=== PATIENT | male | born 1990 | race Caucasian/White ===

== ENCOUNTER 2023-11-24 00:28 | Emergency (ER) | payer SELFPAY ==
[2023-11-24 00:41] VITALS: BP 150/96; PULSE 62; RESP 20; TEMP 99.1; BMI 27.8
[2023-11-24] MEDS ORDERED: diphenhydrAMINE HCL 25 MG CAPSULE (FP) PO ONE ×2 (01:04→02:00)
[2023-11-24] MEDS ORDERED: FAMOTIDINE 20 MG TABLET ONE (02:00)
[2023-11-24] MEDS ORDERED: DEXAMETHASONE SOD PHOSPHATE 10 MG/1 ML VIAL ONE (02:00)
[2023-11-24] MEDS: DEXAMETHASONE 4 MG TABLET (FP) PO ONE (02:05)
[2023-11-24] MEDS: FAMOTIDINE 10 MG TABLET PO ONE (02:05)
== END 2023-11-24 03:16 | disposition home or self-care (01) ==
LOC: JER 00:28
DX: L23.5 Allergic contact dermatitis due to other chemical products (principal); R21 Rash and other nonspecific skin eruption; Y99.0 Civilian activity done for income or pay
CPT/HCPCS: 99283-25